=== PATIENT | female | born 1995 | race Caucasian/White ===

== ENCOUNTER 2024-09-13 16:02 | Inpatient (IN) ==
[2024-09-13] MEDS: CALCIUM CARBONATE 500 MG CHEWABLE TAB PO PRN (18:12)
[2024-09-13] MEDS: SODIUM CHLORIDE 0.9% 1,000 ML IV SCH ×2 (18:47→20:52)
[2024-09-13] MEDS: ONDANSETRON INJ 2 MG/ML 2 ML VIAL IV PRN (19:37)
--- NOTE | 2024-09-13 19:44 | History & Physical Report ---
Date of Service September 13, 2024 Assessment & Plan (1) Influenza A virus present: Plan: Patient initially thought she was in labor this is her second baby she is having some contractions but more irritability she has been checked several times at this stage I believe she is 1 to 2 cm nursing did note that she could be 2-3 but she has not changed significantly in her time in labor and delivery my most recent check is more in the 1 to 2 cm she does feel some contractions recently was diagnosed with influenza in the [place] emergency room. She feels somewhat better but is still nauseous as she has had nausea for much of her Over the course of this time we have hydrated with IV and given Zofran I offered the patient to go if she is clearly not in labor is not making cervical change or stay overnight she prefers to stay overnight Total time [id number] 45 minutes History of Present Illness Primary Care Provider: NO PCP Visit JEROMY Calculator Estimated Delivery Date Method Current WG Current Estimate 09/19/24 Ultrasound #1 38w 4d : 2 Full term: 1 Premature: 0 Total Number of Induced Abortions: 0 Total Number of Spontaneous Abortions: 0 Ectopics: 0 Multiple births: 0 Number of Living Children: 1 and Delivery Plans *Son born with bilateral club feet * Rubella Equivocal- offer vaccine PPX Allergies Allergy/AdvReac Type Severity Reaction Status Date / Time latex Allergy Mild Rash Verified 09/13/24 16:27 Home Medications Medication Instructions Recorded Confirmed Type citalopram 40 mg PO DAILY 02/22/24 09/09/24 History ondansetron 8 mg disintegrating 8 mg PO Q8H PRN nausea and 03/24/24 09/13/24 Rx tablet vomiting #30 tabs 09/13/24 History Patient History Medical History (Updated 09/13/24 @ 19:42 by Lisy Crouch MD, FACOG) Varicella vaccination Depression Anxiety Surgical History S/P wisdom tooth extraction Family History Family/Other No problems noted. Father Diabetes COPD (chronic obstructive pulmonary disease) Mother Lung disease Emphysema Lung cancer Heart disease "born with a hole in her heart" -was repaired Cancer Nose Denies family history of Ovarian cancer Breast cancer Colorectal cancer Social History (Updated 09/13/24 @ 16:30 by Alyx Gan RN) Smoking Status: Current some day smoker Tobacco Type: Cigarettes Cigarettes Per Day: 1 cigarette a day; Second Hand Exposure: No; Do You Dip or Chew Tobacco: No; Hx Alcohol Use: No Hx Substance Use: No Preferred Language: German Communication Ability: Effective Visual Impairment: Partially Limited Hearing Ability: Normal 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 Beliefs That Will Affect Care: None marital status: Single marital status details: Ramses Mendez (Blake) (27) [phone] Current Living Situation: Family Current Living Situation Comment: lives with FOB and son, 3 dogs current occupational status: unemployed How many Children do You have: 1 Other Information That Helps Us Care for You: No Feels Safe at Home: Yes Safety Concerns: Feels Safe At This Time Childhood Exposure to Second-Hand Smoke: No Diet: regular Assistive Devices: Glasses Assistive Devices Comment: wears glasses when she drives Physical Exam Constitutional: WD/WN, vitals as above well developed and well nourished Respiratory: normal respiratory effort, lungs clear to auscultation normal respiratory effort Cardiovascular: RRR, no murmur, no edema Gastrointestinal (Abdomen): normal bowel sounds, soft, nontender, no hepatosplenomegaly Results & Data Vital Signs (Past 12 Hours) Vital Signs Temp Pulse BP O2 Del Method 09/13/24 18:55 89 09/13/24 18:55 99/51 L 09/13/24 16:35 98.1 F 09/13/24 16:31 94 H 101/69 Room Air 09/13/24 16:08 94 H 101/69 Coding Level of Care Code 90706 OP VST EST HI 40 MIN Diagnoses Influenza A virus present J10.1
[2024-09-13] MEDS ORDERED: LIDOCAINE 1% LOCAL 20 ML VIAL INFIL PRN (21:37)
[2024-09-13] MEDS ORDERED: OXYTOCIN 30 UNITS/NSS 30 UNITS/500 ML BAG IV PRN ×2 (21:37→23:45)
[2024-09-13] MEDS ORDERED: BUPIVACAINE 0.25% PF 30 ML VIAL EPI PRN (21:57)
[2024-09-13] MEDS ORDERED: ROPIVACAINE 0.5% PF 5 MG/ML 20 ML VIAL EPI PRN (21:57)
[2024-09-13] MEDS ORDERED: NALOXONE HCL 1 MG in SODIUM CHLORIDE 0.9% 1,000 ML IV PRN (21:57)
[2024-09-13] MEDS ORDERED: diphenhydrAMINE 50 MG/ML VIAL IV PRN (21:57)
[2024-09-13] MEDS ORDERED: NALOXONE HCL 0.4 MG/1 ML VIAL/CARP IV PRN (21:57)
[2024-09-13] MEDS ORDERED: ePHEDrine sulfate 50 MG/ML AMP IV PRN (21:57)
[2024-09-13] MEDS ORDERED: LIDOCAINE 2% MPF LOCAL 5 ML VIAL EPI PRN (21:57)
[2024-09-13] MEDS ORDERED: NALBUPHINE HCL INJ 10 MG/ML AMP IV PRN (21:57)
[2024-09-13] MEDS ORDERED: fentaNYL citrate PF 100 MCG/2 ML VIAL EPI PRN (21:57)
[2024-09-13] MEDS ORDERED: SODIUM CHLORIDE 0.9% PF INJ 10 ML VIAL EPI PRN (21:57)
--- NOTE | 2024-09-13 21:58 | Anesthesiology Consultation ---
Date of Service September 13, 2024 Assessment & Plan (1) Encounter for pre-operative examination: Chart Review Chart Review: Patient NOT seen in Pre Admission Testing and Acceptable Risk for Labor Epidural Consults Requested none History Height/Weight Height: 5 ft 4 in Weight: 71.577 kg Allergies Allergy/AdvReac Type Severity Reaction Status Date / Time latex Allergy Mild Rash Verified 09/13/24 16:27 Medications Home Medications Medication Instructions Recorded Confirmed Last Taken citalopram 40 mg PO DAILY 02/22/24 09/09/24 09/12/24 09:00 ondansetron 8 mg disintegrating 8 mg PO Q8H PRN nausea and 03/24/24 09/13/24 09/13/24 tablet vomiting #30 tabs 09/13/24 09/12/24 Active Medications Generic Name Dose Route Start Last Admin Trade Name Freq PRN Reason Stop Dose Admin Calcium Carbonate 500 mg 09/13/24 17:49 09/13/24 18:12 Calcium Carbonate 500 Mg Chewable Tab PO 10/13/24 17:48 500 mg Q4 PRN Administration Indigestion Sodium Chloride 1,000 mls @ 125 mls/hr 09/13/24 19:45 09/13/24 20:52 Nss IV 09/14/24 19:44 125 mls/hr .Q8H [id number] Administration Ondansetron HCl 4 mg 09/13/24 19:27 09/13/24 19:37 Ondansetron Inj 2 Mg/Ml 2 Ml Vial IV 10/13/24 19:26 4 mg Q6H PRN Administration Nausea And Vomiting Past Medical History Medical History Varicella vaccination Depression Anxiety Past Family History Family History Family/Other No problems noted. Father Diabetes COPD (chronic obstructive pulmonary disease) Mother Lung disease Emphysema Lung cancer Heart disease "born with a hole in her heart" -was repaired Cancer Nose Denies family history of Ovarian cancer Breast cancer Colorectal cancer Past Surgical History Surgical History S/P wisdom tooth extraction Social History Smoking Status: Current some day smoker Smoking cigarettes per day: 1 cigarette a day Do You Dip or Chew Tobacco: No Hx Alcohol Use: No Hx Substance Use: No Physical Exam Vital Signs Last Vital Signs Temp 98.1 F 09/13/24 16:35 Pulse 89 09/13/24 18:55 BP 99/51 L 09/13/24 18:55 O2 Del Method Room Air 09/13/24 16:31
[2024-09-13 22:31] LABS: Hematocrit (blood only) 35.8 % (37.0-47.0); Mean Corpuscular Hemoglobin 29.2 pg (25.0-34.0); Mean Corpuscular Hgb Conc 33.5 g/dL (32.0-36.0); Mean Corpuscular Volume 87.1 fL (80.0-100.0); Mean Platelet Volume 10.8 fL (9.4-12.4); Platelet Count 164 K/uL (130-400); RDW Coefficient of Variation 13.1 % (11.5-14.5); RDW Standard Deviation 41.3 fL (36.4-46.3); Red Blood Count 4.11 M/uL (4.20-5.40); White Blood Count 13.28 K/ul (4.8-10.8)
[2024-09-13] MEDS: fentANYL 2 MCG/ML BUPIVacaine 0.125%-NSS 100ML BAG EPI PRN (22:46)
[2024-09-13] MEDS: LIDOCAINE 2%/EPINEPHRINE 1:200,000 20 ML PF EPI STA (22:47)
[2024-09-13] MEDS: ePHEDrine sulfate 50 MG/ML AMP ONE (22:47)
[2024-09-13] MEDS: BUPIVACAINE 0.25% PF 30 ML VIAL EPI STA (22:47)
[2024-09-13] MEDS: fentaNYL citrate PF 100 MCG/2 ML VIAL EPI STA (22:47)
[2024-09-13] MEDS: fentANYL 2 MCG/ML BUPIVacaine 0.125%-NSS 100ML BAG ONE (22:48)
[2024-09-13] MEDS: SODIUM CHLORIDE 0.9% PF INJ 10 ML VIAL ONE (22:48)
[2024-09-13] MEDS: BUPIVACAINE 0.25% PF 30 ML VIAL ONE (22:48)
[2024-09-13] MEDS: LIDOCAINE 2%/EPINEPHRINE 1:200,000 20 ML PF ONE (22:48)
[2024-09-13] MEDS: fentaNYL citrate PF 100 MCG/2 ML VIAL ONE (22:48)
[2024-09-13] MEDS: SODIUM CHLORIDE 0.9% PF INJ 10 ML VIAL EPI STA (22:49)
--- NOTE | 2024-09-13 23:38 | Delivery Summary ---
Vaginal Delivery Summary Date of Service September 13, 2024 Vaginal Delivery Summary Spontaneous vaginal delivery the patient had been admitted for flu symptoms and was rehydrated she also had some contractions which increased at some point that she had not changed to 4 cm dilated requested epidural rapidly progressed to 8 cm then 10 cm membranes were still intact these were ruptured soon afterwards on after 2 contractions she was able to push the baby out delivering in occiput an terior position no nuchal cord the fluid was clear gentle traction on the baby no excessive force easy delivery live vigorous female cord clamped and cut cord blood obtained placenta red with traction IV Pitocin started uterine tone improved QBL per nursing record [facility] Vaginal Delivery Charge Delivery Type Details:
[2024-09-13] MEDS ORDERED: HYDROCORTISONE ACETATE 25 MG SUPP PR PRN (23:45)
[2024-09-13] MEDS ORDERED: ONDANSETRON 8MG OD TAB PO PRN (23:45)
[2024-09-13] MEDS ORDERED: ACETAMINOPHEN 325 MG TAB PO PRN (23:45)
[2024-09-13] MEDS ORDERED: BENZOCAINE 20% SPRY 85 APPLN/85 GM CAN EXT PRN (23:45)
[2024-09-14 07:00] LABS: Hematocrit (blood only) 33.6 % (37.0-47.0); Hemoglobin 11.5 g/dl (12.0-16.0); Mean Corpuscular Hemoglobin 29.3 pg (25.0-34.0); Mean Corpuscular Hgb Conc 34.2 g/dL (32.0-36.0); Mean Corpuscular Volume 85.7 fL (80.0-100.0); Mean Platelet Volume 10.9 fL (9.4-12.4); Platelet Count 179 K/uL (130-400); RDW Coefficient of Variation 13.1 % (11.5-14.5); RDW Standard Deviation 40.8 fL (36.4-46.3); Red Blood Count 3.92 M/uL (4.20-5.40); White Blood Count 11.33 K/ul (4.8-10.8)
--- NOTE | 2024-09-14 08:11 | Obstetrical Progress Note ---
Date of Service September 14, 2024 Assessment & Plan (1) Encounter for supervision of normal intrauterine in multigravida, antepartum: PPD 1, may want discharge later today Subjective Ambulation: ambulating normally Voiding: no voiding problems Passing Gas:: Yes Diet Tolerance:: regular diet Lochia:: Small Physical Exam Constitutional WD/WN, vitals as above well developed and well nourished Respiratory normal respiratory effort, lungs clear to auscultation normal respiratory effort Cardiovascular RRR, no murmur, no edema Gastrointestinal (Abdomen) normal bowel sounds, soft, nontender, no hepatosplenomegaly Results & Data Vital Signs (Past 12 Hours) Vital Signs Temp Pulse Pulse Resp BP BP Pulse Ox 09/14/24 07:35 98.2 F 76 16 109/71 97 09/14/24 03:26 98.1 F 66 16 99/61 L 09/14/24 02:13 83 118/54 L 09/14/24 01:57 78 87/50 L 09/14/24 01:55 78 77/46 L 09/14/24 01:39 72 89/50 L 09/14/24 01:25 67 87/49 L 09/14/24 01:10 68 108/60 09/14/24 01:00 73 107/57 L 09/14/24 00:40 83 122/68 09/14/24 00:10 81 95/79 L 09/13/24 23:55 89 09/13/24 23:55 118/56 L 09/13/24 23:41 86 09/13/24 23:41 118/51 L 09/13/24 23:31 96 09/13/24 23:31 93 H 09/13/24 23:29 88 L 09/13/24 23:29 80 09/13/24 23:25 96 09/13/24 23:25 91 H 09/13/24 23:20 96 09/13/24 23:20 74 09/13/24 23:15 97 09/13/24 23:15 81 09/13/24 23:10 96 09/13/24 23:10 94 H 09/13/24 23:05 96 09/13/24 23:05 81 09/13/24 23:01 90 09/13/24 23:01 93/50 L 09/13/24 23:00 95 09/13/24 23:00 73 09/13/24 22:59 96 H 09/13/24 22:59 98/53 L 09/13/24 22:57 84 09/13/24 22:57 99/54 L 09/13/24 22:55 94 09/13/24 22:55 82 09/13/24 22:55 101/58 L 09/13/24 22:54 84 09/13/24 22:54 96/52 L 09/13/24 22:53 94 H 09/13/24 22:53 87/51 L 09/13/24 22:50 96 09/13/24 22:50 98 H 09/13/24 22:49 94 09/13/24 22:49 88 09/13/24 22:45 95 09/13/24 22:45 83 09/13/24 22:40 98 09/13/24 22:40 94 H 09/13/24 22:38 93 09/13/24 22:38 87 09/13/24 22:34 98 09/13/24 22:34 92 H 09/13/24 22:30 94 09/13/24 22:30 87 09/13/24 22:29 94 09/13/24 22:29 93 H 09/13/24 22:24 93 09/13/24 22:24 86 09/13/24 22:22 94 09/13/24 22:22 96 H 09/13/24 22:19 93 09/13/24 22:19 86 09/13/24 22:15 94 09/13/24 22:15 111 H 09/13/24 22:14 95 09/13/24 22:14 93 H O2 Del Method 09/14/24 07:35 Room Air 09/14/24 03:26 Room Air 09/14/24 02:13 09/14/24 01:57 09/14/24 01:55 09/14/24 01:39 09/14/24 01:25 09/14/24 01:10 09/14/24 01:00 09/14/24 00:40 09/14/24 00:10 09/13/24 23:55 09/13/24 23:55 09/13/24 23:41 09/13/24 23:41 09/13/24 23:31 09/13/24 23:31 09/13/24 23:29 09/13/24 23:29 09/13/24 23:25 09/13/24 23:25 09/13/24 23:20 09/13/24 23:20 09/13/24 23:15 09/13/24 23:15 09/13/24 23:10 09/13/24 23:10 09/13/24 23:05 09/13/24 23:05 09/13/24 23:01 09/13/24 23:01 09/13/24 23:00 09/13/24 23:00 09/13/24 22:59 09/13/24 22:59 09/13/24 22:57 09/13/24 22:57 09/13/24 22:55 09/13/24 22:55 09/13/24 22:55 09/13/24 22:54 09/13/24 22:54 09/13/24 22:53 09/13/24 22:53 09/13/24 22:50 09/13/24 22:50 09/13/24 22:49 09/13/24 22:49 09/13/24 22:45 09/13/24 22:45 09/13/24 22:40 09/13/24 22:40 09/13/24 22:38 09/13/24 22:38 09/13/24 22:34 09/13/24 22:34 09/13/24 22:30 09/13/24 22:30 09/13/24 22:29 09/13/24 22:29 09/13/24 22:24 09/13/24 22:24 09/13/24 22:22 09/13/24 22:22 09/13/24 22:19 09/13/24 22:19 09/13/24 22:15 09/13/24 22:15 09/13/24 22:14 09/13/24 22:14
[2024-09-14] MEDS: DOCUSATE SODIUM 100 MG CAP PO SCH (08:17)
[2024-09-14] MEDS: IBUPROFEN 600 MG TAB PO PRN (08:58)
[2024-09-14] MEDS: PRENATAL VITAMIN 1 TAB PO SCH (08:58)
--- NOTE | 2024-09-14 09:59 | Anesthesia Procedure Note ---
Date of Service September 14, 2024 Anesthesia Post Epidural Note Vital Signs Vital Signs: Temp Pulse Resp BP Pulse Ox O2 Del Method 36.8 C 76 16 109/71 97 Room Air 09/14/24 07:35 09/14/24 07:35 09/14/24 07:35 09/14/24 07:35 09/14/24 07:35 09/14/24 07:35 Pain Intensity Bilateral Abdomen: Pain Intensity: 0 Notes Mental Status: alert / awake / arousable Nausea / Vomiting: adequately controlled Pain: adequately controlled Airway Patency, RR, SpO2: stable & adequate BP & HR: stable & adequate Hydration State: stable & adequate Neuraxial Anesthesia: was administered and sensory block is resolving Anesthetic Complications: no major complications apparent and Pt Satisfied with anesthetic care Epidural: Removed without complications and With tip intact
[2024-09-14 10:51] LABS: Creatinine Clr Calc Pharmacy 157.9 ml/min
[2024-09-14] MEDS: CITALOPRAM 40 MG TAB PO SCH (11:23)
[2024-09-14] MEDS: OSELTAMIVIR PHOSPHATE 75 MG CAP PO SCH (11:23)
[2024-09-14] MEDS: DIPHTHER/TETAN/PERTUS Vaccine (Tdap, Adol/Adult) 0.5mL IM ONE (13:28)
[2024-09-14] MEDS: bisacodyL 5 MG TABEC PO SCH (20:29)
--- NOTE | 2024-09-15 06:31 | Obstetrical Progress Note ---
Date of Service September 15, 2024 Assessment & Plan (1) Encounter for supervision of normal intrauterine in multigravida, antepartum: day 2 the patient is doing well meets criteria no extremity pain home Subjective Ambulation: ambulating normally Voiding: no voiding problems Passing Gas:: Yes Diet Tolerance:: regular diet Lochia:: Small Physical Exam Constitutional WD/WN, vitals as above well developed and well nourished Respiratory normal respiratory effort, lungs clear to auscultation normal respiratory effort Cardiovascular RRR, no murmur, no edema Gastrointestinal (Abdomen) normal bowel sounds, soft, nontender, no hepatosplenomegaly Results & Data Vital Signs (Past 12 Hours) Vital Signs Temp Pulse Resp BP O2 Del Method 09/14/24 23:46 97.2 F L 58 L 16 92/59 L Room Air 09/14/24 20:05 97.2 F L 62 14 105/67 Room Air
[2024-09-15 10:28] VITALS: BP 102/65; PULSE 66; RESP 18; TEMP 97.3; O2SAT 97
[2024-09-15] MEDS ORDERED: bisacodyL 10 MG SUPP PR PRN (23:45)
== END 2024-09-15 09:15 | disposition home or self-care (01) | DRG 807 ==
LOC: OPB 16:02 → 4S1 16:06 → 4E2 09-14 03:14